=== PATIENT | male | born 1965 | race Caucasian/White ===

== ENCOUNTER → 2022-05-24 14:26 | Outpatient (CLI) | payer OTHER, MEDICAID, SELFPAY ==
--- NOTE | 2022-06-06 17:16 | DIAB.INIT ---
Initial Diabetes Education Assessment Name: Raffy Carr Date: 05/24/22 Time: 230-3p Dx: Type II Diabetes Provider: Amber Akbar presents for initial diabetes education visit today. Some confusion on scheduling resulted in a late arrival of 30min, which cut our visit short today. States he has had DM for one year. Reports last HgA1c of 7.4% from a home kit. Had not been taking Metformin 500mg BID due to making him feel not well. Reports FH of DM with mother, brother, and sister. States he is single and hates to cook after work. Trying to eat smaller portions and avoid sweets. Also reports trying to lose weight. States he is aiming for a keto diet with a lot of salad. States he would like to know more about good vs bad carbs. Diet recall: 7-8a: coffee, granola bar 6-8p: tacos on keto tortilla with 1TBS ea rice and beans, avocado and veggie OR 2c pasta w/meat and garlic bread x 6 snack: 2 keto egg bites Beverages: 1-2x 16.8oz water, coffee x 1-2c, low sugar or sf beverages Anthropometrics: Ht: 69 Wt: 229.2# today Physical Activity: No program. Moves at work. Self-Monitoring Blood Glucose: 1x per week checks pre lunch, often 150-200mg/dL. Diabetes Medications: 500mg Metformin Pertinent Labs: Reports 7.4% hgA1c 1 year ago. No labs in EMR available. Past Medical History: (Last Updated 04/27/22 @ 21:44 by Marybel Dixon) Acne BPH (benign prostatic hyperplasia) Carpal tunnel syndrome Chronic back pain Diabetes mellitus type 2 in obese Eczema Hearing loss Heroin addiction History of hepatitis C Hyperlipidemia Obstructive sleep apnea (adult) (pediatric) Onychomycosis Plantar warts Rosacea Scoliosis Sleep apnea Tobacco dependence Vision disorder Intervention: This participant was very receptive. Provided appropriate educational handouts. Discussed the following topics: Completed intake assessment. Discussed barriers to care. Pathophysiology of type 2 diabetes Importance of self-monitoring, how often, and when to check. Suggested checking at different times to evaluate meals Plate Method, impact of macronutrients on blood sugar, meal timing, pairing macronutrients and spreading out carbohydrates for better blood glucose management General recommended servings for carbohydrates at meals and snacks Fluids recommendations and benefit for BG Role of physical activity and following provider guidelines for safety Created SMART goals for patient self-care and success. Goals: Aim for 2 x 16.8oz water bottles daily min Check BG 1-2x per day Increase veggie intake daily Keep pro to deck of cards portion Keep carbs to 1-1.5c or less Follow-up: MONTEZ BOATENG follow-up in 3-4 weeks Evelyne Farnsworth RDN, KILO Certified Diabetes Care and Office Services Clerk P: [phone] Thank you for this referral
== END ==
PROVIDERS: PCP Family Medicine; Referring Provider Family Medicine; Visit Provider Family Medicine
DX: E11.9 Type 2 diabetes mellitus without complications (principal); Z79.84 Long term (current) use of oral hypoglycemic drugs; Z71.3 Dietary counseling and surveillance
CPT/HCPCS: G0108

== ENCOUNTER 2022-11-03 21:57 | Emergency (ER) | payer OTHER, MEDICAID, SELFPAY ==
[2022-11-03 22:20] VITALS: BP 113/61; PULSE 90; RESP 17; TEMP 36.9; O2SAT 95; BMI 29.5
[2022-11-04] VITALS (9 sets, daily range): BP systolic 112–128; BP diastolic 61–71; PULSE 85–96; RESP 16–20; O2SAT 93–100
--- NOTE | 2022-11-04 04:43 | ED_ITS ---
HPI - Skin/Abscess/Foreign Bdy General Chief complaint: Skin/Abscess/Foreign Body Stated complaint: Leg infection Time Seen by Provider: 11/04/22 04:29 Source: patient Mode of arrival: Ambulatory History of Present Illness HPI narrative: The patient is a 57-year-old male history of insulin-dependent diabetes presenting today with 2 days of erythematous right lower leg. He reports that he scratched it couple days ago and it has progressively gotten more red and painful. He complains of body aches and fevers as well although he is afebrile here. Denies any recent travel no history of MRSA or DVTs Related Data Previous Rx's Medication Instructions Recorded atorvastatin 40 mg tablet (Lipitor) 40 mg PO BEDTIME #90 tabs 04/12/22 tamsulosin 0.4 mg capsule (Flomax) 0.4 mg PO BEDTIME #90 caps 04/12/22 lisinopril 10 mg tablet 10 mg PO DAILY blood pressure #90 08/14/22 tabs metformin 500 mg tablet 1,000 mg PO BID #360 tabs 08/14/22 doxycycline hyclate 100 mg capsule 100 mg PO BID #14 caps 11/04/22 levofloxacin 750 mg tablet 750 mg PO DAILY 7 days #7 tabs 11/04/22 Allergies Allergy/AdvReac Type Severity Reaction Status Date / Time bee venom protein (honey bee) Allergy Verified 08/14/22 15:06 Review of Systems Review of Systems ROS Unobtainable: All systems reviewed & are unremarkable except as noted in HPI and below Patient History Medical History Acne BPH (benign prostatic hyperplasia) Carpal tunnel syndrome Chronic back pain Heroin addiction History of hepatitis C Hyperlipidemia Onychomycosis Plantar warts Rosacea Scoliosis Sleep apnea Tobacco dependence Type 2 diabetes mellitus with hyperglycemia, without long-term current use of insulin Surgical History Abdominal hernia Anesthesia Social History Smoking Status: Current every day smoker Smoking Status: Current every day smoker alcohol intake frequency: other Substance Use Type: does not use Exam Initial Vital Signs Initial Vital Signs: Vital Signs Temperature 98.5 F 11/03/22 22:20 Pulse Rate 90 11/03/22 22:20 Respiratory Rate 17 05/12/23 22:20 Blood Pressure 113/61 11/03/22 22:20 Pulse Oximetry 95 11/03/22 22:20 Oxygen Delivery Method Room Air 11/03/22 22:20 GENERAL: Alert pleasant 57-year-old male no acute distress HEENT: Head atraumatic,EOMI, pupils reactive, face symmetric, moist mucous membranes CARDIOVASCULAR: Regular rate and rhythm without murmurs, rubs or gallops. RESPIRATORY: Breath sounds equal bilaterally, no wheezes rales or rhonchi. EXTREMITIES: Normal range of motion, no clubbing or edema. Neurovascularly intact NEUROLOGICAL: Alert and oriented x4. SKIN: Right lower leg is erythematous with 2 wounds that are draining. Red from least ankle to knee. Left leg has chronic healed wounds at that is not erythematous Course Orders Ordered: Discontinued Medications Levofloxacin (Levaquin) 750 mg in 150 mls @ 100 mls/hr IV NOW ONE Stop: 11/04/22 06:20 Last Infusion: 11/04/22 07:16 Dose: 0 mls/hr Documented By: Admin: 11/04/22 06:00 Dose: 100 mls/hr Documented By: LALA Vancomycin HCl (Vancomycin) 1,250 mg in 250 mls @ 250 mls/hr IV NOW ONE Stop: 11/04/22 07:01 Last Infusion: 11/04/22 07:17 Dose: 0 mls/hr Documented By: Admin: 11/04/22 06:11 Dose: 250 mls/hr Documented By: GAMALIEL Vital Signs Vital signs: Vital Signs - 8 hr 11/04/22 02:40 11/04/22 02:39 11/04/22 02:39 Pulse Rate 88 88 Respiratory Rate 16 Blood Pressure 128/71 128/71 Pulse Oximetry 100 95 Oxygen Delivery Method Room Air 11/04/22 02:42 11/04/22 02:42 11/04/22 06:48 Pulse Rate 85 88 Respiratory Rate 16 20 Blood Pressure 121/64 122/64 Pulse Oximetry 93 94 Oxygen Delivery Method Room Air Room Air MDM - Skin/Abscess/Foreign Bdy Lab Data 11/04/22 05:25 11/04/22 05:25 Labs: Lab Results 11/04/22 11/04/22 11/04/22 Range/Units 05:25 05:25 05:25 WBC 17.5 H (4.5-11.0) X10^3/uL RBC 4.90 (4.5-5.9) X10^6/uL Hgb 14.6 (13.5-17.5) g/dL Hct 42.7 (41-53) % MCV 87.3 (80-100) fL MCH 29.9 (26-34) PG MCHC 34.3 (30-36) % RDW 13.6 (11.6-14.8) % Plt Count 155 (150-400) X10^3/uL Neut % (Auto) 91.1 H (50-75) % Lymph % (Auto) 4.5 L (25-40) % [place] % (Auto) 3.7 (3-14) % Eos % (Auto) 0.3 L (2-4) % Baso % (Auto) 0.4 (0-2) % Neut # (Auto) 35748 H (1401-4222) /uL Lymph # (Auto) 800 L (5572-1151) /uL [place] # (Auto) 600 (0-900) /uL Eos # (Auto) 0 (0-450) /uL Baso # (Auto) 100 (0-100) /uL Sodium 129 L (137-145) mmol/L Potassium 3.8 (3.4-5.1) mmol/L Chloride 94 L (98-107) mmol/L Carbon Dioxide 29 (22-32) mmol/L BUN 24 H (9-20) mg/dL Creatinine 1.04 (0.66-1.25) mg/dL Estimated GFR > 60 (>60) mL/min BUN/Creatinine Ratio 23.1 H (6-22) Glucose 157 H (70-100) mg/dL Lactate 1.4 (0.7-2.1) mmol/L Calcium 8.8 (8.4-10.2) mg/dL Total Bilirubin 0.8 (0.2-1.3) mg/dL AST 26 (17-59) IU/L ALT 29 (<50) IU/L Alkaline Phosphatase 71 (38-126) U/L Total Protein 7.8 (6.3-8.2) g/dL Albumin 3.8 (3.5-5.0) g/dL Globulin 4.0 (1.7-4.1) g/dL Albumin/Globulin Ratio 1.0 (1.0-2.8) Procalcitonin (<0.5) ng/mL 11/04/22 Range/Units 05:25 WBC (4.5-11.0) X10^3/uL RBC (4.5-5.9) X10^6/uL Hgb (13.5-17.5) g/dL Hct (41-53) % MCV (80-100) fL MCH (26-34) PG MCHC (30-36) % RDW (11.6-14.8) % Plt Count (150-400) X10^3/uL Neut % (Auto) (50-75) % Lymph % (Auto) (25-40) % [place] % (Auto) (3-14) % Eos % (Auto) (2-4) % Baso % (Auto) (0-2) % Neut # (Auto) (8178-1339) /uL Lymph # (Auto) (7156-1646) /uL [place] # (Auto) (0-900) /uL Eos # (Auto) (0-450) /uL Baso # (Auto) (0-100) /uL Sodium (137-145) mmol/L Potassium (3.4-5.1) mmol/L Chloride (98-107) mmol/L Carbon Dioxide (22-32) mmol/L BUN (9-20) mg/dL Creatinine (0.66-1.25) mg/dL Estimated GFR (>60) mL/min BUN/Creatinine Ratio (6-22) Glucose (70-100) mg/dL Lactate (0.7-2.1) mmol/L Calcium (8.4-10.2) mg/dL Total Bilirubin (0.2-1.3) mg/dL AST (17-59) IU/L ALT (<50) IU/L Alkaline Phosphatase (38-126) U/L Total Protein (6.3-8.2) g/dL Albumin (3.5-5.0) g/dL Globulin (1.7-4.1) g/dL Albumin/Globulin Ratio (1.0-2.8) Procalcitonin 3.68 H (<0.5) ng/mL MDM Narrative Medical decision making narrative: Patient 57-year-old male history of insulin-dependent diabetes hypertension presenting today with right leg lower extremity cellulitis. He reports it is only been for 2 days he is to have leukocytosis of 17 procalcitonin of 3.8 and normal lactic acid. He is at risk for worsening infection secondary to the diabetes. He is given Levaquin and vancomycin blood cultures are pending. Encouraged patient to stay for IV antibiotics however he is quite adamant that he has to go, he must go to work. No fever no hypotension no tachycardia he is stable. Discharge Plan Departure Patient Disposition: Home Clinical Impression: Cellulitis of leg, right Instructions: DI for Cellulitis -- Adult Activity Restrictions/Additional Instructions: *You have been diagnosed with cellulitis right leg *What to do: At this time I did encourage you to stay in the hospital. Please monitor your leg very closely. Your blood culture should be back in next 2-3 days if they are positive week will call you to check on you in *Continue to take medications as directed --> SENT TO [facility] Levaquin 750 mg once a day for 7 days Doxycycline 100 mg twice a day 7 *Follow up with your primary care provider in 2-3 days or call [phone] *Return to ER if you should have increasing redness pain fevers swelling or any new, worsening or concerning symptoms Prescriptions: New doxycycline hyclate 100 mg capsule 100 mg PO BID Qty: 14 0RF levofloxacin 750 mg tablet 750 mg PO DAILY 7 Days Qty: 7 0RF No Action tamsulosin [Flomax] 0.4 mg capsule 0.4 mg PO BEDTIME Qty: 90 3RF atorvastatin [Lipitor] 40 mg tablet 40 mg PO BEDTIME Qty: 90 3RF lisinopril 10 mg tablet 10 mg PO DAILY Qty: 90 3RF metformin 500 mg tablet 1,000 mg PO BID Qty: 360 3RF Referrals: Desmond Clark DO [Primary Care Provider] - Stand Alone Forms: Patient Portal/API
[2022-11-04 05:34] LABS: Add Manual Diff / Slide Review NO; Basophils Absolute Auto 100 /uL (0-100); Basophils Percent Auto 0.4 % (0-2); Eosinophils Absolute Auto 0 /uL (0-450); Eosinophils Percent Auto 0.3 % (2-4); Hematocrit 42.7 % (41-53); Hemoglobin 14.6 g/dL (13.5-17.5); Lymphocytes Absolute Auto 800 /uL (1100-4500); Lymphocytes Percent Auto 4.5 % (25-40); Mean Corpuscular HGB Conc 34.3 % (30-36); Mean Corpuscular Hemoglobin 29.9 PG (26-34); Mean Corpuscular Volume 87.3 fL (80-100); Monocytes Absolute Auto 600 /uL (0-900); Monocytes Percent Auto 3.7 % (3-14); Neutrophils Absolute Auto 15900 /uL (1500-7000); Neutrophils Percent Auto 91.1 % (50-75); Platelet Count 155 X10^3/uL (150-400); Red Cell Distribution Width 13.6 % (11.6-14.8); White Blood Cell Count 17.5 X10^3/uL (4.5-11.0)
[2022-11-04 05:46] LABS: Alanine Aminotransferase 29 IU/L (<50); Albumin 3.8 g/dL (3.5-5.0); Alkaline Phosphatase 71 U/L (38-126); Aspartate Aminotransferase 26 IU/L (17-59); BUN Creatinine Ratio 23.1 (6-22); Bilirubin Total 0.8 mg/dL (0.2-1.3); Blood Urea Nitrogen 24 mg/dL (9-20); Calcium 8.8 mg/dL (8.4-10.2); Carbon Dioxide 29 mmol/L (22-32); Chloride 94 mmol/L (98-107); Estimated Glomerular Filt Rate > 60 mL/min (>60); Glucose 157 mg/dL (70-100); HEMOLYSIS < 15 (0-50); Potassium 3.8 mmol/L (3.4-5.1); Sodium 129 mmol/L (137-145); Total Protein 7.8 g/dL (6.3-8.2)
[2022-11-04 05:47] LABS: Lactate (Lactic Acid) 1.4 mmol/L (0.7-2.1)
[2022-11-04] MEDS: levoFLOXacin 750 MG/150 ML PIGGYBACK 100 MG IV (06:00)
[2022-11-04 06:03] LABS: Procalcitonin 3.68 ng/mL (<0.5)
[2022-11-04] MEDS: VANCOMYCIN 1,250 MG/250 ML PIGGYBACK 250 MG IV (06:11)
== END 2022-11-04 07:31 | disposition home or self-care (01) ==
PROVIDERS: Emergency Provider Emergency Medicine; PCP Family Medicine
DX: L03.115 Cellulitis of right lower limb (principal); R50.9 Fever, unspecified
CPT/HCPCS: 36415; 80053; 83605; 84145; 85025; 87040; 87070; 87075; 87077; 87147; 87205; 96365; 96368; 99284; J1956

== ENCOUNTER → 2022-11-14 12:09 | Outpatient (CLI) | payer OTHER, MEDICAID, SELFPAY ==
[2022-11-14 13:33] LABS: BUN Creatinine Ratio 34.6 (6-22); Blood Urea Nitrogen 27 mg/dL (9-20); Calcium 9.7 mg/dL (8.4-10.2); Carbon Dioxide 27 mmol/L (22-32); Chloride 101 mmol/L (98-107); Estimated Glomerular Filt Rate > 60 mL/min (>60); Glucose 222 mg/dL (70-100); HEMOLYSIS < 15 (0-50); Potassium 4.8 mmol/L (3.4-5.1); Sodium 136 mmol/L (137-145)
[2022-11-14 13:59] LABS: Prostate Specific Antigen Scrn 0.344 ng/mL (0.1-4.0)
[2022-11-14 15:04] LABS: Creatinine Urine Random 116.1 mg/dL
[2022-11-14 15:12] LABS: Microalbumin Urine Random 0.7 mg/dL (0-1.6)
[2022-11-15 09:18] LABS: x Labcorp Estim. Avg Glu (eAG) 229 mg/dL (.); x Labcorp Hemoglobin A1c 9.6 % (4.8-5.6)
== END ==
PROVIDERS: PCP Family Medicine; Referring Provider Family Medicine; Visit Provider Family Medicine
DX: E87.1 Hypo-osmolality and hyponatremia (principal); E11.69 Type 2 diabetes mellitus with other specified complication; E66.9 Obesity, unspecified; E78.5 Hyperlipidemia, unspecified; N40.0 Benign prostatic hyperplasia without lower urinary tract symptoms; Z12.5 Encounter for screening for malignant neoplasm of prostate
CPT/HCPCS: 36415; 80048; 82043; 82570; 83036; G0103

== ENCOUNTER → 2022-12-27 09:29 | Outpatient (CLI) | payer OTHER, MEDICAID, SELFPAY ==
[2022-12-27 12:03] LABS: Creatinine Urine Random 182.4 mg/dL
[2022-12-27 12:07] LABS: Microalbumi Creatinin Ratio Ur 4.3 ug/mg CR (<30); Microalbumin Urine Random 0.8 mg/dL (0-1.6)
[2022-12-28 04:38] LABS: x Labcorp Estim. Avg Glu (eAG) 209 mg/dL (.); x Labcorp Hemoglobin A1c 8.9 % (4.8-5.6)
== END ==
PROVIDERS: PCP Family Medicine; Referring Provider Family Medicine; Visit Provider Family Medicine
DX: E11.9 Type 2 diabetes mellitus without complications (principal)
CPT/HCPCS: 36415; 82043; 82570; 83036